=== PATIENT | female | born 2000 | race Caucasian/White ===

== ENCOUNTER 2018-09-26 08:05 | Outpatient (CLI) | payer BC | END 2018-09-26 10:20 | disposition home or self-care (01) | LOC: OBT 08:05 → L-D 08:05 → OBT 10:20 | DX: O48.0 Post-term pregnancy (principal); Z3A.40 40 weeks gestation of pregnancy | CPT/HCPCS: 76815; 76818 ==

== ENCOUNTER 2018-09-27 19:36 | Inpatient (IN) | payer BC ==
[2018-09-27 21:13] LABS: RUPTURE FETAL MEMBRANES NEGATIVE (NEGATIVE)
[2018-09-28] MEDS ORDERED: CARBOPROST 250 MCG INJ IM
[2018-09-28] MEDS ORDERED: BUTORPHANOL 2 MG INJ IV
[2018-09-28] MEDS ORDERED: IBUPROFEN 600 MG TAB PO
[2018-09-28] MEDS ORDERED: MISOPROSTOL 200 MCG TAB PR
[2018-09-28] MEDS ORDERED: OXYTOCIN 30 UNITS/LR 500 ML IV ×2
[2018-09-28] MEDS: LACTATED RINGER'S 1,000 ML IV ×5 (00:47→23:41)
[2018-09-28 01:33] LABS: ADD MAN DIFF? NO
[2018-09-28 01:36] LABS: BASOPHILS % 0.1 % (0.0-2.0); EOSINOPHILS # 0.1 10^3/ul (0.0-0.5); EOSINOPHILS % 0.9 % (0.0-7.0); HEMATOCRIT 36.5 % (37.0-47.0); HEMOGLOBIN 12.2 g/dl (12.0-16.0); LYMPHOCYTES # 2.4 10^3/ul (0.8-2.9); LYMPHOCYTES % 23.4 % (18.0-55.0); MEAN CORPUSCULAR HEMOGLOBIN 30.8 pg (29.0-33.0); MEAN CORPUSCULAR HGB CONC 33.4 g/dl (32.0-37.0); MEAN CORPUSCULAR VOLUME 92.2 fl (72.0-104.0); MEAN PLATELET VOLUME 11.8 fl (7.4-10.4); MONOCYTE # 0.8 10^3/ul (0.3-0.9); MONOCYTES % 7.3 % (0.0-13.0); NEUTROPHILS % 67.5 % (30.0-74.0); PLATELET COUNT 194 10^3/UL (140-415); RED BLOOD COUNT 3.96 10^6/ul (4.20-5.40); RED CELL DISTRIBUTION WIDTH 12.6 % (11.5-14.5)
[2018-09-28 01:36] LABS: WHITE BLOOD COUNT 10.3 10^3/ul (4.8-10.8)
[2018-09-28 02:01] LABS: INR 0.84; PROTIME 11.6 Sec (11.9-14.9); PT RATIO 0.9
[2018-09-28 02:02] LABS: PARTIAL THROMBOPLASTIN TIME 26.8 Sec (23.0-35.0)
[2018-09-28] MEDS: MISOPROSTOL 50 MCG CAPSULE PO ×3 (06:41→22:22)
[2018-09-28 15:11] LABS: RAPID PLASMA REAGIN NONREACTIVE (NR)
[2018-09-29] MEDS: MISOPROSTOL 50 MCG CAPSULE PO ×2 (02:29→06:34)
[2018-09-29] MEDS: LACTATED RINGER'S 1,000 ML IV ×3 (07:12→23:21)
[2018-09-29] MEDS: OXYTOCIN 30 UNITS/LR 500 ML IV (11:20)
[2018-09-30] MEDS: LACTATED RINGER'S 1,000 ML IV ×4 (00:24→23:11)
[2018-09-30] MEDS ORDERED: NALOXONE (0.4 MG/ML) INJ IV (01:00)
[2018-09-30] MEDS: ONDANSETRON 4 MG INJ IV (02:34)
[2018-09-30] MEDS: FENTAnyl 2MCG/ML-ROPIV 0.2% 100 ML BAG EPI ×3 (09:13→23:06)
[2018-09-30] MEDS: AMPICILLIN 2 GM/NS (PMX) 100 ML IV (21:46)
[2018-10-01] MEDS: AMPICILLIN 1 GM/NS (PMX) 50 ML IV (01:35)
[2018-10-01] MEDS: METHYLERGONOVINE 0.2 MG INJ IM (02:31)
[2018-10-01] MEDS: LIDOCAINE 1% (MPF) 30 ML INJ INJ (02:39)
[2018-10-01] MEDS ORDERED: MISOPROSTOL 200 MCG TAB PR (03:00)
[2018-10-01] MEDS ORDERED: NACL 0.9% 3 ML SYG IV (03:00)
[2018-10-01] MEDS ORDERED: ONDANSETRON 4 MG INJ IV (03:00)
[2018-10-01] MEDS ORDERED: ACETAMINOPHEN 325 MG TAB PO (03:00)
[2018-10-01] MEDS ORDERED: MAGNESIUM HYDROXIDE 30ML CUP PO (03:00)
[2018-10-01] MEDS ORDERED: OXYTOCIN 30 UNITS/LR 500 ML IV (03:00)
[2018-10-01] MEDS ORDERED: METHYLERGONOVINE 0.2 MG INJ IM (03:00)
[2018-10-01] MEDS ORDERED: DIBUCAINE 1% 30 GM OINT TOP (03:00)
[2018-10-01] MEDS ORDERED: CARBOPROST 250 MCG INJ IM (03:00)
[2018-10-01] MEDS ORDERED: OXYCODONE/ASPIRIN (4.88/325) TAB PO (03:00)
[2018-10-01] MEDS: OXYTOCIN 30 UNITS/LR 500 ML IV ×2 (03:10→06:48)
[2018-10-01] MEDS: WITCH HAZEL/GLYCERIN PAD PR (05:45)
[2018-10-01] MEDS: BENZOCAINE 20% 56 ML SPRAY TOP (05:45)
[2018-10-01] MEDS: IBUPROFEN 600 MG TAB PO ×3 (05:45→18:30)
[2018-10-01] MEDS ORDERED: METHYLERGONOVINE 0.2 MG INJ (07:00)
[2018-10-01] MEDS: SENNA/DOCUSATE NA (8.6MG/50MG) TAB PO ×2 (09:16→21:00)
[2018-10-02] MEDS: OXYCODONE/ASPIRIN (4.88/325) TAB PO (03:21)
[2018-10-02] MEDS: IBUPROFEN 600 MG TAB PO ×5 (06:00→23:28)
[2018-10-02 06:43] LABS: ADD MAN DIFF? NO
[2018-10-02 06:49] LABS: BASOPHILS % 0.2 % (0.0-2.0); EOSINOPHILS # 0.2 10^3/ul (0.0-0.5); EOSINOPHILS % 1.7 % (0.0-7.0); HEMOGLOBIN 9.2 g/dl (12.0-16.0); LYMPHOCYTES # 2.7 10^3/ul (0.8-2.9); LYMPHOCYTES % 21.7 % (18.0-55.0); MEAN CORPUSCULAR HEMOGLOBIN 31.3 pg (29.0-33.0); MEAN CORPUSCULAR HGB CONC 32.9 g/dl (32.0-37.0); MEAN CORPUSCULAR VOLUME 95.2 fl (72.0-104.0); MEAN PLATELET VOLUME 11.9 fl (7.4-10.4); MONOCYTE # 0.9 10^3/ul (0.3-0.9); NEUTROPHIL # 8.6 10^3/ul (1.6-7.5); NEUTROPHILS % 68.3 % (30.0-74.0); PLATELET COUNT 160 10^3/UL (140-415); RED BLOOD COUNT 2.94 10^6/ul (4.20-5.40); RED CELL DISTRIBUTION WIDTH 12.8 % (11.5-14.5)
[2018-10-02 06:49] LABS: WHITE BLOOD COUNT 12.5 10^3/ul (4.8-10.8)
[2018-10-02] MEDS: LANOLIN HPA 1 PKT TOP (09:43)
[2018-10-02] MEDS: SENNA/DOCUSATE NA (8.6MG/50MG) TAB PO ×2 (09:43→21:00)
[2018-10-02] MEDS: INFLUENZA VIRUS VACCINE 0.5 ML (DISPENSING) IM* (12:12)
[2018-10-03] MEDS: IBUPROFEN 600 MG TAB PO ×2 (06:04→12:19)
[2018-10-03] MEDS: SENNA/DOCUSATE NA (8.6MG/50MG) TAB PO (09:17)
== END 2018-10-03 13:16 | disposition home or self-care (01) | DRG 807 ==
LOC: OBT 23:50 → PP1 10-01 04:30 → OBT 19:36 → L-D 23:50
PROVIDERS: Obstetrics & Gynecology
PROC: 10E0XZZ Delivery of Products of Conception, External Approach (ICD-10-PCS; principal; 2018-09-30)
PROC: 0HQ9XZZ Repair Perineum Skin, External Approach (ICD-10-PCS; 2018-09-30)
PROC: 3E033VJ Introduction of Other Hormone into Peripheral Vein, Percutaneous Approach (ICD-10-PCS; 2018-09-30)
DX: O48.0 Post-term pregnancy (principal); Z37.0 Single live birth; Z3A.40 40 weeks gestation of pregnancy; O69.81X0 Labor and delivery complicated by cord around neck, without compression, not applicable or unspecified; O70.0 First degree perineal laceration during delivery
CPT/HCPCS: 62319; 84112; 85025; 85610; 85730; 86592; 86850; 86900; 86901; 90686; 99464